=== PATIENT | female | born 1965 | race Caucasian/White ===

== ENCOUNTER 2016-10-20 08:36 | Emergency (ER) | payer BC ==
[~2016-10-20] VITALS: Ht 160 cm; Wt 45.5 kg
[~2016-10-20 08:36] MED LIST: ALBUAER2 INH; ASCO500T16 PO; CALC1CHW2 PO; EPP3/2; ESCI10TA17 PO; GARL400T4 PO; LEVO150T PO; MULT-506 PO; OMEG10007 PO; ZNTT/150 PO
[2016-10-20 08:43] VITALS: TEMP 36.7; Ht 160 cm; Wt 45.5 kg
[2016-10-20] MEDS ORDERED: VNTHFA/IN INH (09:00)
[2016-10-20] MEDS ORDERED: GARL1CAP6 (09:00)
[2016-10-20] MEDS ORDERED: SODIUM CHLORIDE 0.9% 500ML 500 ML IV STA (09:44)
[2016-10-20 10:01] LABS: BASO % 0.6 %; BASO ABS # 0.03 K/uL (0-0.2); COMPLETE YES; EOS % 2.6 %; HEMATOCRIT 41.8 % (37-47); LYMPH % 46.2 %; LYMPH ABS # 2.46 K/uL (1.2-3.4); MEAN CELL VOLUME 94.6 fL (80-100); MEAN CORPUSCULAR HEMOGLOBIN 33.3 pg (25-34); MEAN CORPUSCULAR HGB CONC 35.2 g/dl (32-36); MEAN PLATELET VOLUME 11.9 fL (7.4-10.4); MONO % 7.3 %; NEUT % 43.3 %; PLATELET COUNT 291 K/uL (130-400); RED BLOOD COUNT 4.42 M/uL (4.2-5.4); WHITE BLOOD COUNT 5.33 K/uL (4.8-10.8)
[2016-10-20 10:08] LABS: ALT/SGPT 22 U/L (12-78); AST/SGOT 15 U/L (15-37); BLOOD UREA NITROGEN 11 mg/dl (7-18); CALCIUM 9.6 mg/dl (8.5-10.1); CARBON DIOXIDE 31 mmol/L (21-32); CHLORIDE 103 mmol/L (98-107); CREATININE 0.91 mg/dl (0.60-1.20); GLUCOSE 89 mg/dl (70-99); MAGNESIUM 2.4 mg/dl (1.8-2.4); POTASSIUM 3.9 mmol/L (3.5-5.1); SODIUM 142 mmol/L (136-145)
--- NOTE | 2016-10-20 10:12 | DIAGNOSTIC IMAGING REPORT ---
CHEST ONE VIEW PORTABLE CLINICAL HISTORY: Heart palpitations COMPARISON STUDY: 10/17/2012 FINDINGS: The cardiac and mediastinal contours are normal. There is no evidence of focal pulmonary consolidation. There is no evidence of failure. No pleural effusions are visualized.[ IMPRESSION: No active disease in the chest. Electronically signed by: Lukas Joy M.D. 10/20/2016 10:10 AM Dictated Date/Time: 10/20/2016 10:10 AM
[2016-10-20 10:15] LABS: PROTHROMBIN TIME (PATIENT) 10.6 SECONDS (9.0-12.0)
[2016-10-20] MEDS ORDERED: DEXAMETHASONE SOD INJ 10 MG/ML VIAL IV ONE (10:15)
[2016-10-20 10:19] LABS: ALB/GLOB RATIO 1.3 (0.9-2); ALKALINE PHOSPHATASE 71 U/L (45-117); THYROID STIMULATING HORMONE 0.648 uIu/ml (0.300-4.500)
[2016-10-20 10:28] LABS: URINE APPEARANCE CLEAR (CLEAR); URINE BILIRUBIN NEG (NEG); URINE COLOR YELLOW; URINE NITRITE NEG (NEG); UROBILINOGEN NEG (NEG); ZZUR CULT IF INDIC CLEAN CATCH NO
[2016-10-20 10:29] LABS: MANUAL MICROSCOPIC REQUIRED? NO; REVIEW REQ? NO
[2016-10-20 11:02] LABS: BENZODIAZEPINE, URINE NEG (NEG); COCAINE,URINE NEG (NEG); PHENCYCLIDINE, URINE NEG (NEG)
--- NOTE | 2016-10-20 12:46 | EMERGENCY ROOM VISIT NOTE ---
History First contact with patient: 09:19 Chief Complaint: ILLNESS Stated Complaint: HEART PALPITATIONS, FAINT, NAUSEA History of Present Illness The patient is a 51 year old female who presents to the Emergency Department by private vehicle for evaluation of her episodes of lightheadedness and near- syncope. She reports that she's had an adequate amount of stress recently with a breakup as well as a change in job. She is currently going through breakup with her significant other. She reports on Wednesday while at her significant other's house she was having Augmentin developed sweatiness as well as nausea and dizziness. She had no vomiting. She had no pain in her chest. She had been feeling okay until today. While at work, she reports taking excessive amounts of caffeine in the form of coffee and smoking a cigarette. She reports that shortly after this developed twitchiness of her lower extremities as well as lightheadedness. She admits to drinking alcohol with more frequency recently in an effort to cope. She denies any suicidal or homicidal ideation. The patient actually made an appointment for this afternoon with her primary care provider for her new symptoms. She elected to come to the emergency department for evaluation of her recent symptoms. Patient denies any history of cardiac disease. She is only treated for hypothyroidism at this point. Mother has a history of hypertension and high cholesterol. There is no significant family history of coronary artery disease. The patient does admit to smoking. She currently denies any headaches, dizziness, chest pain, palpitations, shortness of breath, hemoptysis, nausea, vomiting, or lower abdominal pain. She denies any recent long distance travel or oral contraception. There is no family history of blood clots or bleeding disorders. She rates her current discomfort as a 1/10. Review of Systems A complete 10-point Review of Systems was discussed with the patient, with pertinent positives and negatives listed in the History of Present Illness. All remaining Review of Systems questions can be considered negative unless otherwise specified. Past Medical/Surgical History Medical Problems: (1) Asthma, Unspecified (2) Frequent UTI (3) GERD (gastroesophageal reflux disease) (4) Hypothyroidism Nos Surgical Problems: (1) section (2) Hx of tubal ligation Social History Smoking Status: Current Every Day Smoker Alcohol Use: occasionally Marital Status: Housing Status: lives with family Occupation Status: employed Current/Historical Medications Scheduled Albuterol Hfa (Ventolin Hfa), 2-4 PUFFS INH Q6H Ascorbic Acid (Ascorbic Acid), 500 MG PO QAM Calcium Carbonate-Vitamin D (Caltrate 600+D 600-400 mg-Unit), 1 TAB PO QAM Epinephrine (Epipen 2-Ray), UD Escitalopram (Lexapro), 10 MG PO QAM Fish Oil ([place]-3), 1 CAP PO QAM Levothyroxine Sodium (Synthroid), 150 MCG PO QAM Multivitamin (Multivitamin), 1 TAB PO QAM Scheduled PRN Ranitidine (Zantac), 150 MG PO DAILY PRN for Indigestion Miscellaneous Medications Garlic (Garlic), Unknown Dose Allergies Coded Allergies: BEE STING (Verified Allergy, Severe, ANAPHYLAXIS, 10/20/16) Physical Exam Vital Signs Date Time Temp Pulse Resp B/P Pulse Ox O2 Delivery O2 Flow Rate FiO2 10/20/16 12:52 62 18 138/78 99 10/20/16 11:32 62 16 136/84 97 Room Air 10/20/16 09:52 66 16 138/96 99 Room Air 10/20/16 08:49 64 10/20/16 08:43 36.7 94 18 159/82 96 Room Air Pain Rating (0-10): 1 Physical Exam VITAL SIGNS - Vital signs and nursing notes were reviewed. GENERAL - 51-year-old female appearing her stated age who is in no acute distress. Communicates well with provider and answers questions appropriately. HEAD - NC/AT. EYES - PERRL with EOMI bilaterally. Sclera anicteric. Palpebral conjunctiva pink and moist with no injection noted. EARS - No deformities of external structures noted on gross examination bilaterally. No pain elicited with palpation of the tragus bilaterally. External auditory canals without discharge or otorrhea. Tympanic membranes pearly kolb without retraction or bulging. NOSE - Midline and without cyanosis. No epistaxis or purulent drainage noted. Septum midline without deviation or septal hematoma noted. MOUTH/OROPHARYNX - Without perioral cyanosis. Buccal mucosa pink and moist and without leukoplakia. Tongue midline with equal elevation of palate bilaterally. No tonsillar hypertrophy, erythema, or exudates noted. Good dentition noted. NECK - Neck with FROM. Supple to palpation. LUNGS - Chest wall symmetric without accessory muscle use, intercostals retractions, or central cyanosis. Normal vesicular breath sounds CTA B/L. No wheezes, rales, or rhonchi appreciated. CARDIAC - RRR with S1/S2. No murmur, rubs, or gallops appreciated. No reproducible tenderness to palpation appreciated over the anterior chest wall. ABDOMEN - Abdominal contour flat and without pulsations or visible masses. BS normoactive all four quadrants. No tenderness, palpable masses, hepatosplenomegaly, or ascites noted. EXTREMITIES - No clubbing or peripheral cyanosis. No pretibial edema present. +3 /5 radial and dorsalis pedis pulses palpated throughout. +5/5 strength noted in UE/LE bilaterally. NEUROLOGIC - Cranial nerves II through XII grossly intact. Sensory intact to light touch throughout. PSYCH - A&Ox3 and cooperates fully with examiner. Pt is very pleasant and interacts well with examiner. Medical Decision & Procedures ER Provider Diagnostic Interpretation: Radiological imaging and reports were reviewed by myself. Radiologist's Interpretation as follows: CHEST ONE VIEW PORTABLE CLINICAL HISTORY: Heart palpitations COMPARISON STUDY: 10/17/2012 FINDINGS: The cardiac and mediastinal contours are normal. There is no evidence of focal pulmonary consolidation. There is no evidence of failure. No pleural effusions are visualized.[ IMPRESSION: No active disease in the chest. Laboratory Results 10/20/16 08:45 Red Blood Count 4.42, Mean Corpuscular Volume 94.6, Mean Corpuscular Hemoglobin 33.3, Mean Corpuscular Hemoglobin Concent 35.2, Mean Platelet Volume 11.9, Neutrophils (%) (Auto) 43.3, Lymphocytes (%) (Auto) 46.2, Monocytes (%) (Auto) 7.3, Eosinophils (%) (Auto) 2.6, Basophils (%) (Auto) 0.6, Neutrophils # (Auto) 2.31, Lymphocytes # (Auto) 2.46, Monocytes # (Auto) 0.39, Eosinophils # (Auto) 0.14, Basophils # (Auto) 0.03 10/20/16 08:45 Test 10/20/16 08:45 10/20/16 10:00 10/20/16 12:00 White Blood Count 5.33 K/uL (4.8-10.8) Red Blood Count 4.42 M/uL (4.2-5.4) Hemoglobin 14.7 g/dL (12.0-16.0) Hematocrit 41.8 % (37-47) Mean Corpuscular Volume 94.6 fL (80-100) Mean Corpuscular Hemoglobin 33.3 pg (25-34) Mean Corpuscular Hemoglobin Concent 35.2 g/dl (32-36) Platelet Count 291 K/uL (130-400) Mean Platelet Volume 11.9 fL (7.4-10.4) Neutrophils (%) (Auto) 43.3 % Lymphocytes (%) (Auto) 46.2 % Monocytes (%) (Auto) 7.3 % Eosinophils (%) (Auto) 2.6 % Basophils (%) (Auto) 0.6 % Neutrophils # (Auto) 2.31 K/uL (1.4-6.5) Lymphocytes # (Auto) 2.46 K/uL (1.2-3.4) Monocytes # (Auto) 0.39 K/uL (0.11-0.59) Eosinophils # (Auto) 0.14 K/uL (0-0.5) Basophils # (Auto) 0.03 K/uL (0-0.2) RDW Standard Deviation 46.0 fL (36.4-46.3) RDW Coefficient of Variation 13.2 % (11.5-14.5) Immature Granulocyte % (Auto) 0.0 % Immature Granulocyte # (Auto) 0.00 K/uL (0.00-0.02) Prothrombin Time 10.6 SECONDS (9.0-12.0) Prothromb Time International Ratio 1.0 (0.9-1.1) Activated Partial Thromboplast Time 27.1 SECONDS (21.0-31.0) Partial Thromboplastin Ratio 1.0 Anion Gap 8.0 mmol/L (3-11) Est Creatinine Clear Calc Drug Dose 51.4 ml/min Estimated GFR () 83.5 Estimated GFR (Non- 72.0 BUN/Creatinine Ratio 12.0 (10-20) Calcium Level 9.6 mg/dl (8.5-10.1) Magnesium Level 2.4 mg/dl (1.8-2.4) Total Bilirubin 0.7 mg/dl (0.2-1) Aspartate Amino Transf (AST/SGOT) 15 U/L (15-37) Alanine Aminotransferase (ALT/SGPT) 22 U/L (12-78) Alkaline Phosphatase 71 U/L (45-117) Total Creatine Kinase 65 U/L (26-192) Creatine Kinase MB < 0.5 ng/ml (0.5-3.6) Creatine Kinase MB Ratio (0-3.0) Total Protein 7.5 gm/dl (6.4-8.2) Albumin 4.2 gm/dl (3.4-5.0) Globulin 3.3 gm/dl (2.5-4.0) Albumin/Globulin Ratio 1.3 (0.9-2) Lipase 199 U/L (73-393) Thyroid Stimulating Hormone (TSH) 0.648 uIu/ml (0.300-4.500) Urine Color YELLOW Urine Appearance CLEAR (CLEAR) Urine pH 8.0 (4.5-7.5) Urine Specific [place] 1.000 (1.000-1.030) Urine Protein NEG (NEG) Urine Glucose (UA) NEG (NEG) Urine Ketones NEG (NEG) Urine Occult Blood NEG (NEG) Urine Nitrite NEG (NEG) Urine Bilirubin NEG (NEG) Urine Urobilinogen NEG (NEG) Urine Leukocyte Esterase NEG (NEG) Urine Opiates Screen NEG (NEG) Urine Methadone, Qualitative NEG (NEG) Urine Barbiturates NEG (NEG) Urine Phencyclidine (PCP) Level NEG (NEG) Ur Amphetamine/Methamphetamine NEG (NEG) MDMA (Ecstasy) Screen NEG (NEG) Urine Benzodiazepines Screen NEG (NEG) Urine Cocaine Metabolite NEG (NEG) Urine Marijuana (THC) NEG (NEG) Troponin I 0.039 ng/ml (0-0.045) Medications Administered Medications (Trade) Dose Ordered Sig/Mehreen Route Start Time Stop Time Status Last Admin Dose Admin Sodium Chloride (Nss 500ml) 500 ml @ 999 mls/hr Q31M STAT IV 10/20/16 09:44 10/20/16 10:14 DC 10/20/16 09:44 999 MLS/HR Procedure Patient was placed on the database technician and monitored throughout the entire extent of their stay. In addition, the patient's pulse oximetry was monitored throughout the entire stay. Any abnormalities or aberrancies were addressed appropriately. ECG Indication: diaphoresis Rate (beats per minute): 65 Rhythm: normal sinus Findings: no acute ischemic change, no ectopy Change: no significant change (from 11/24/2006.) ED Course Patient was seen and evaluated by myself. Labs were drawn, saline lock in place. EKG and chest x-rays were obtained. Laboratory results demonstrate no acute leukocytosis, worrisome anemia, or bandemia. The patient has no significant electrolyte abnormalities. Cardiac enzymes are negative. Troponin is not elevated. Patient was hydrated with a 1000 mL normal saline bolus per the patient reports no return of symptoms at this point. Repeat troponin was obtained and found to be unremarkable. Patient was educated on laboratory results and imaging findings. She was educated on keeping her appointments afternoon with her primary care provider. She was educated on worrisome symptoms for return visit to the emergency department. Patient discharged home afebrile and in good condition. Medical Decision Given the patient's presentation and stated complaints, I did elect to perform the above-mentioned workup. The patient presents today complaining of palpitations and lightheadedness. She has no pain in her chest this point. She has no significant risk factors or family history of bursitis at this point. Her EKG is unremarkable. Cardiac enzymes are negative 2. She has no focal neurological deficits. Exam is otherwise unremarkable. Patient has appointment this afternoon with her primary care provider. I feel this is appropriate management in this situation. I do not feel that admission or further evaluation as the sedimentation rate this point. The patient will return to the emergency department in the setting of any changing or worsening symptoms. Patient discharged home afebrile and in good condition. In the evaluation and treatment of this patient, the following differential diagnoses were considered: CT, ASC, Dysrhythmia, Angina, Mediastinitis, GERD, Esophagitis, PE, Pneumonia, Bronchitis, Costochondritis, Rib Fracture, Zoster. Impression Primary Impression: Dizziness Additional Impression: Pre-syncope Departure Information Dispostion Home / Self-Care Condition GOOD Referrals Alec Jack M.D. (PCP) Patient Instructions My [facility] Additional Instructions You have been treated in the Emergency Department for your Dizziness and Presyncope. Laboratory results and Imaging Studies have ruled out any cardiac or pulmonary cause of your chest pain. For pain control, you can use the following [id number] medicines (if >12 yo): - Regular strength (325mg/tab) Tylenol (acetaminophen) 2 tabs every 4-6 hours as needed. Do not exceed 12 tablets in a 24 hour period. Avoid taking more than 4 grams (4000 mg) of Tylenol per day. This includes any other sources of acetaminophen you may take on a regular basis. - Regular strength (200 mg/tab) Advil (ibuprofen) 1-2 tabs every 4-6 hours as needed. Do not exceed a dose of 3200 mg per day. Follow-up with your primary care provider this afternoon as scheduled. Return to the Emergency Department if your current symptoms worsen despite treatment course outlined above, or if you develop any of the following symptoms : worsening chest pain, associated jaw/arm pain, nausea, dizziness, shortness of breath, bloody cough, or fainting. Problem Qualifiers
[2016-10-20 12:52] VITALS: BP 138/78; PULSE 62; O2SAT 99
== END 2016-10-20 12:53 | disposition home or self-care (01) ==
LOC: C.EDB 08:38
DX: R42 Dizziness and giddiness (principal); R55 Syncope and collapse; J45.909 Unspecified asthma, uncomplicated; K21.9 Gastro-esophageal reflux disease without esophagitis; E03.9 Hypothyroidism, unspecified; F17.200 Nicotine dependence, unspecified, uncomplicated

== ENCOUNTER → 2016-11-18 | Outpatient (CLI) | payer BC ==
[~2016-11-18] MED LIST changes: -ALBUAER2 INH; +GARL1CAP6; -GARL400T4 PO; +VNTHFA/IN INH
[2016-11-18 13:13] LABS: CHOLESTEROL/HDL RATIO 1.4
== END | disposition home or self-care (01) ==
LOC: C.LABBFT 08:49
PROVIDERS: ATTEND Nurse Practitioner
DX: E03.9 Hypothyroidism, unspecified (principal)

== ENCOUNTER → 2017-04-07 | Outpatient (CLI) | payer BC ==
[2017-04-07 12:46] LABS: MANUAL MICROSCOPIC REQUIRED? NO; REVIEW REQ? NO; URINE APPEARANCE TURBID (CLEAR); URINE BILIRUBIN NEG (NEG); URINE COLOR DK YELLOW; URINE NITRITE NEG (NEG); URINE SPECIFIC GRAVITY 1.019 (1.000-1.030); UROBILINOGEN NEG (NEG)
== END | disposition home or self-care (01) ==
LOC: C.LABBFT 10:53
PROVIDERS: ATTEND Physician Assistant Medical
DX: R39.9 Unspecified symptoms and signs involving the genitourinary system (principal)

== ENCOUNTER → 2017-11-04 | Outpatient (CLI) | payer OTHER ==
--- NOTE | 2017-11-04 14:28 | MAMMOGRAPHY REPORT ---
BILATERAL DIGITAL SCREENING MAMMOGRAM TOMOSYNTHESIS WITH CAD: 11/04/2017 CLINICAL HISTORY: Routine screening. The patient has no current complaints. TECHNIQUE: Breast tomosynthesis in addition to standard 2D mammography was performed. Current study was also evaluated with a Computer Aided Detection (CAD) system. COMPARISON: Comparison is made to exams dated: 09/13/2015 mammogram, 07/11/2014 mammogram, 3 mammogram, 01/12/2013 mammogram, 07/07/2012 mammogram, and 07/06/2011 mammogram - [facility]. BREAST COMPOSITION: The tissue of both breasts is heterogeneously dense, which may obscure small mas ses. FINDINGS: No suspicious masses, calcifications, or areas of architectural distortion are noted in ei ther breast. There has been no significant interval change compared to prior exams. Scattered bilate ral benign-appearing calcifications are again noted. IMPRESSION: ACR BI-RADS CATEGORY 2: BENIGN There is no mammographic evidence of malignancy. A 1 year screening mammogram is recommended. The pa tient will receive written notification of the results. Approximately 10% of breast cancers are not detected with mammography. A negative mammographic report should not delay biopsy if a clinically suggestive mass is present. Olya Ordaz M.D. ah/:11/04/2017 12:18:21 Scaffold Builder: Melody AMADO)(M), [facility] letter sent: Normal 1/2 BI-RADS Code: ACR BI-RADS Category 2: Benign
== END | disposition home or self-care (01) ==
LOC: C.MAMM 10:52
PROVIDERS: ATTEND Internal Medicine
DX: Z12.31 Encounter for screening mammogram for malignant neoplasm of breast (principal)

== ENCOUNTER → 2017-12-20 | Outpatient (CLI) | payer OTHER ==
[~2017-12-20] MED LIST changes: +RANI150T85 PO; -ZNTT/150 PO
== END | disposition home or self-care (01) ==
LOC: C.PAPS 10:12
PROVIDERS: ATTEND Obstetrics & Gynecology
DX: Z12.4 Encounter for screening for malignant neoplasm of cervix (principal); N87.0 Mild cervical dysplasia

== ENCOUNTER 2020-01-09 05:18 | Inpatient (IN) ==
--- NOTE | 2020-01-05 14:40 | Anesthesiology Consultation ---
Date of Service January 05, 2020 Assessment & Plan (1) Encounter for pre-operative examination: Chart Review Chart Review: Acceptable Risk for Surgery and Patient NOT seen in Pre Admission Testing History Surgery Operation Date: 01/09/20 07:30 Proposed Procedures p Navigational Bronchoscopy with ICG dye, Right Robotic Video Assisted Thoracoscopy with Right Lower Lobe Wedge Resection with Frozen Section, Possible Right Lower Lobectomy with Mediastinal Lymphadenectomy - [place] Perales MD, FACS Height/Weight Height: 5 ft 3 in Weight: 65.771 kg Allergies Allergy/AdvReac Type Severity Reaction Status Date / Time bee venom protein (honey bee) Allergy Severe ANAPHYLAXIS Verified 01/03/20 11:33 Medications Home Medications Medication Instructions Recorded Confirmed Last Taken ibuprofen [Motrin IB] 600 mg PO Q6H PRN 11/26/19 01/05/20 11/26/19 15:00 albuterol sulfate 90 mcg/actuation 2 puffs INH Q6H PRN #18 gm 12/28/19 01/05/20 Unknown aerosol inhaler levothyroxine 150 mcg capsule 150 mcg PO QAM 12/28/19 01/05/20 Unknown garlic 1,000 mg capsule 1,000 mg PO QAM 01/03/20 01/05/20 Unknown multivitamin 1 tab PO QAM 01/03/20 01/05/20 Unknown escitalopram oxalate 20 mg PO QAM 01/05/20 01/05/20 Unknown Past Medical History Medical History Asthma SEASONAL ASTHMA AND MAY USE RESCUE INHALER 1-2 TIMES PER YEAR. Bronchitis HAS HAD 2-3 TIMES OVER AN 8 YEARS PERIOD. NO SOB OR COUGH AT THIS TIME. Carpal tunnel syndrome BL S/P SURGERY Hypothyroidism, unspecified (Acute) POTS (postural orthostatic tachycardia syndrome) PALPITATIONS INFREQUENTLY, NO RECENT SYNCOPE. CURRENTLY UNDER CONTROL. FOLLOWED BY PCP. STRESS TEST 2017 NEGATIVE, NO ARRHYTHMIA. Pulmonary nodule Sigmoid diverticulitis (Inactive) 11/2019 WAS THE LAST EPISODE Past Family History Family History Mother Hypothyroidism Hypertension Father Diverticulitis Cancer Unknown Gout Parkinsons Mitral valve prolapse Grandmother Stroke Past Surgical History Surgical History H/O section Hx of colonoscopy 10/2018 S/P trigger finger release Social History Smoking Status: Former smoker tobacco type: cigarettes Do You Dip or Chew Tobacco: No Smoking End Date: ABOUT 2 WEEK AGO Hx Alcohol Use: Yes Alcohol type: beer alcohol intake frequency: 0-2 drinks per day Hx Substance Use: No substance use type: marijuana Testing Laboratory Results 11/26/19 WBC: 10.53 H/H: 13.0/37.5 PLATELETS: 218 SODIUM: 140 POTASSIUM: 3.4 CHLORIDE: 107 CO2: 29 BUN: 7 CREATININE: 0.81 GLUCOSE: 107 Electrocardiogram Date: 01/04/20 Findings: + SB @ (59bpm) Otherwise normal, no significant change from 10/20/16 EKG. Stress Test Date: 11/23/17 Type: exercise Resting EF: 60-65% Negative stress echo for ischemia at 85% MPHR. Mildly blunted blood pressure response to exercise. No arrhythmia. Study terminated due to fatigue. No chest pain reported. Good exercise tolerance. Resting echo: No regional wall motion abnormalities. Normal LV size and systolic function. No LVH. Type I diastolic dysfunction. No significant valvular abnormalities visualized. Normal estimated RVSP, assuming normal right atrial pressure. Pulmonary Function Test Date: 12/28/19 Findings: + FEV1 pre (2.34), + FEV1 post (2.46) and + responds to Bronchodilators (+4) Adequate test. No evidence of obstructive lung dysfunction. Significant bronchodilator response. Normal lung volumes. Mild decrease in DLCO which corrects for [facility]. Suggest clinical correlation.
[2020-01-09] MEDS ORDERED: LR 15ML/HR IV SCH (06:00)
[2020-01-09] MEDS ORDERED: PROPOFOL IV EMULSION 10 MG/ML 20 ML VIAL IV ONE (06:50)
[2020-01-09] MEDS ORDERED: DEXAMETHASONE SOD INJ 4 MG/ML VIAL ONE (06:50)
[2020-01-09] MEDS ORDERED: ONDANSETRON INJ 2 MG/ML 2 ML VIAL ONE (06:50)
[2020-01-09] MEDS ORDERED: fentaNYL citrate 100 MCG/2 ML VIAL ONE ×2 (06:50→12:03)
[2020-01-09] MEDS ORDERED: LIDOCAINE HCL 2% 2 ML VIAL/AMP(20MG/ML) INFIL ONE (06:50)
[2020-01-09] MEDS ORDERED: MIDAZOLAM HCL 1 MG/ML 2ML VIAL ONE (06:50)
[2020-01-09] MEDS ORDERED: ROCURONIUM BROMIDE 10 MG/ML 5 ML VIAL ONE (06:50)
[2020-01-09] MEDS ORDERED: BUPIVACAINE 0.5 % 5 MG/1 ML MPF 30ML VIAL ONE (07:02)
[2020-01-09] MEDS ORDERED: SODIUM CHLORIDE 0.9% PF 50 ML VIAL ONE (07:03)
[2020-01-09] MEDS ORDERED: BUPIVACAINE LIPOSOME 1.3% 266 MG/20 ML VIAL ONE (07:03)
--- NOTE | 2020-01-09 07:25 | History & Physical Bridge Note ---
Date of Service January 09, 2020 History & Physical Bridge Note I have examined the patient, reviewed the History & Physical and in the interval since the performance of the History & Physical I have noted the following changes of clinical significance: no changes noted
[2020-01-09] MEDS ORDERED: PHENYLEPHRINE 100MCG/ML 5ML SYR ONE (07:53)
[2020-01-09] MEDS ORDERED: ePHEDrine sulfate 50 MG/ML SYR ONE (07:58)
[2020-01-09] MEDS ORDERED: CLINDAMYCIN PHOS 300 MG/2 ML VIAL ONE (07:59)
[2020-01-09] MEDS ORDERED: SUGAMMADEX SODIUM 200 MG/2 ML VIAL IV ONE (08:20)
--- NOTE | 2020-01-09 08:36 | Fluoroscopy Report ---
INTRAOPERATIVE RADIOGRAPHS CLINICAL HISTORY: Navigational bronchoscopy. Fluoroscopy time: 3 2 seconds. FINDINGS: 2 spot fluoroscopic views of the right lower chest are correlated with chest CT dated 2019. Both images show a catheter projecting over the right lower lobe in the region of the expected pulmonary nodule. There is no evidence of pneumothorax on the provided images. IMPRESSION: Bronchoscopy images as above. See operative report for detailed findings. Electronically signed by: Theo Browning M.D. 01/09/2020 8:34 AM
[2020-01-09] MEDS ORDERED: HYDROmorphone INJ 1 MG/ML SYRINGE IV PRN (08:45)
[2020-01-09] MEDS ORDERED: LABETALOL HCL IV 5 MG/ML 20ML IV PRN (08:45)
[2020-01-09] MEDS ORDERED: MEPERIDINE HCL 25 MG/ML CARP/VIAL IV PRN (08:45)
[2020-01-09] MEDS ORDERED: PHENYLEPHRINE 100MCG/ML 5ML SYR IV PRN (08:45)
[2020-01-09] MEDS ORDERED: ePHEDrine sulfate 50 MG/ML AMP IV PRN (08:45)
[2020-01-09] MEDS ORDERED: ONDANSETRON INJ 2 MG/ML 2 ML VIAL IV PRN ×2 (08:45→13:16)
[2020-01-09] MEDS ORDERED: ATROPINE SULFATE 0.1 MG/ML 10ML SYR IV PRN (08:45)
--- NOTE | 2020-01-09 11:58 | XRay Report ---
SINGLE VIEW CHEST CLINICAL HISTORY: Status post right lower lobe resection. FINDINGS: An AP, portable, upright chest radiograph is compared to study dated 10/20/2016 and correlat ed with chest CT dated 12/05/2019. The examination is degraded by portable technique and patient rotat ion. The heart is mildly enlarged. The pulmonary vasculature is noncongested. There is postoperative change and volume loss consistent with right lower lobe resection. A right-sided chest tube is in codi ce. The tip terminates at the apex. Trace pleural fluid is noted at the right lung base. There is bib asilar atelectasis. No definite pneumothorax is identified. The skeletal structures are osteopenic. T he bony thorax is grossly intact. Trace subcutaneous gas is noted in the right lower neck. IMPRESSION: 1. There is postoperative change and volume loss consistent with right lower lobe resection. 2. A chest tube is present at the right apex. No pneumothorax is clearly seen. 3. There is trace pleural fluid at the right lung base and bibasilar atelectasis. ACT 112: Negative or not required by law. Electronically signed by: Theo Browning M.D. 01/09/2020 11:57 AM
[2020-01-09] MEDS: fentaNYL citrate 100 MCG/2 ML VIAL IV PRN ×4 (12:04→12:24)
--- NOTE | 2020-01-09 12:09 | Operative Report (OR) ---
DATE OF OPERATION: 01/09/2020 PREOPERATIVE DIAGNOSIS: Right lower lobe mass. 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 PROCEDURES PERFORMED: 1. Electromagnetic navigational bronchoscopy with marking of the area with indocyanine green dye. 2. Robot-assisted thoracoscopic wedge resection using Firefly technology of right lower lobe x2. 3. Robot-assisted thoracoscopic right lower lobectomy. 4. Mediastinal lymphadenectomy. SURGEON: Chico Perales MD. KENNEL AIDE: JANINE Connolly. ANESTHESIA: General anesthesia, endotracheal intubation. INDICATION FOR PROCEDURE AND FINDINGS: This is a 54-year-old smoker who has been smoking lightly but for many years. She was noted to have a mass in her right lower lobe, which was not present in 2007. She is otherwise healthy. We had a long talk about this. It was markedly intraparenchymal. I felt that if we could rosy the pleura near this, we would be able to go deep and get to the mass, although I did explain to the patient that that may not be possible. In which case depending on how things would go, I would proceed with a lobectomy. It should be noted I did not like the appearance of this mass. It was spiculated. With her history of cigarette smoking, I was concerned. She had no evidence of metastatic disease anywhere else. On 01/09/2020, the patient was brought to the operating room and underwent an uncomplicated electromagnetic navigational bronchoscopy and I marked this area with indocyanine green dye. We then turned the patient and performed a robot-assisted thoracoscopic evaluation. She had well-developed fissures. We saw this area of the indocyanine green dye; however, it should be noted that the mass was a good 2-3 cm intraparenchymal, we would not be able to palpate it. I wedged this area out and I could not feel the mass. I wedged another significant wedge out, still did not feel it. At this point, I elected to proceed with a lobectomy, which was performed without difficulty with negligible blood loss and really no air leak at the conclusion of the case. Frozen section showed this to be a stromal tumor. It is an unusual cancer. It is not a hamartoma. Unlikely it is a sarcoma. 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 The patient tolerated the procedure well and was extubated in the room with negligible blood loss. DESCRIPTION OF PROCEDURE: The patient was brought to the operating room, laid in supine position. General anesthesia was induced and endotracheal intubation performed with a single lumen tube. Fiberoptic bronchoscope was inserted, and we could see that the airways themselves were without abnormalities. The airways were then registered with the superDimension system. I then went out to the mass and could see this nicely and used a radial ultrasound probe to see that we were very close to the mass; however, I went beyond this another centimeter and a half or so and injected 0.5 mL of indocyanine green dye and 5 mL of air. There was no bleeding. I withdrew the scope and the patient tolerated it well. The patient was then switched over to a double lumen endotracheal tube. This was positioned properly. We then turned the patient into the left lateral decubitus position, and her right chest was prepped and draped in usual sterile fashion. After appropriate timeout had been called, a 5 mm port was placed anterior to the mid axillary line in the eighth interspace. It should be noted that we gave prophylactic antibiotics prior to the electromagnetic navigational bronchoscopy and also called a timeout not only before the bronchoscopy and marking but also before the robot-assisted thoracoscopic portion. Upon placing the 5 mm scope, it was seen that there were no adhesions. 8 mm ports were placed anterior and posterior and then a 5 mm port was placed further posterior in a different interspace closer to the spine. The patient had no adhesions and had well-developed fissures. Pulling the lobe up, we came upon the area using the Firefly technology to see where the dye was marked. Grasping this, we then used an Endo-NICOLA stapler and did a generous wedge resection; however, upon removing this with an Endobag, I could not feel the mass. For this reason, I went back and took a larger wedge resection. Again, upon pulling this out, I could not palpate the mass. We have already taken a good portion of the right lower lobe and I felt that doing a lobectomy to ensure that we removed this mass was appropriate. We then did a lymph node dissection and freed up the inferior pulmonary ligament and came up and freed up the vein posteriorly. Coming up, I biopsied two level 9 nodes. Really did not see a level 8 node and then we got into the level 7 lymph node packet. Also, I biopsied level 10 and level 11 node. It should be noted that I dissected out the level 11 node between the inferior aspect of the right upper lobe bronchus and the bronchus intermedius. I identified the posterior ascending artery and did a pretty aggressive dissection along the bronchus. I then went above the azygos vein and dissected out a packet of level 2 and level 4 nodes. Coming back down posteriorly, I was able to identify the artery and dissected out the artery just below the fissure. Upon going anterior to the artery, I dissected back up until I saw the posterior ascending artery and then completed the fissure with a staple posteriorly. This required 2 firings of the staple. This looked quite good and I dissected out the artery and fired an Endo-NICOLA stapler across this below the takeoff of the right middle lobe branches and this went very nicely. I then dissected out the bronchus and the vein. I them and then used Endo-NICOLA stapler to fire across the bronchus below the middle lobe takeoff. This then left just the vein and I fired Endo-NICOLA stapler across this. We placed this in an Endobag and removed it through the assistance port. It should be noted, we placed a 15 mm port into the assistant professor of forestry port site which was just above the diaphragm between the anterior port and the camera port. I could palpate the mass after I pulled this out. We sent this off for frozen section and while we were waiting, we checked for an air leak and did not see one. We then closed the assistant professor of forestry's port with a 0 Vicryl in running continuous fashion. A 24-Yemeni chest tube was placed in the camera port and directed towards the apex under thoracoscopic guidance. This was sutured in place with heavy silk suture. The rest of the incisions were closed with 4-0 Monocryl in running subcuticular fashion. The patient did not have an air leak at the conclusion of the case. We had less than 100 mL of blood loss. It should be noted that at the beginning of the case, 266 mg of Exparel in 20 mL of solution were mixed with 30 mL of 0.5% bupivacaine and 250 mL of normal saline. This solution was used to inject each of the 5 port sites. We also injected the intercostal space from the 2nd to the 11th rib. This was done under thoracoscopic guidance. At the conclusion of the case, the patient tolerated it well, was extubated in the room. I went and reviewed the frozen section and this is an unusual tumor. It may be benign, but it is not a hamartoma. It may be an adenomyoma of the lung, which is very unusual. It is possible it could also be a sarcoma. Immunohistochemical stains will need to be done to tell us for sure. The margins were negative. She tolerated it quite well. I attest to the content of the Intraoperative Record and any orders documented therein. Any exception s are noted below.
[2020-01-09] MEDS ORDERED: METOCLOPRAMIDE HCL INJ 5 MG/ML 2 ML VIAL ONE (12:22)
[2020-01-09] MEDS ORDERED: METOCLOPRAMIDE HCL INJ 5 MG/ML 2 ML VIAL IV STA ×2 (12:23→13:16)
--- NOTE | 2020-01-09 12:27 | Anesthesiology Progress Note ---
Date of Service January 09, 2020 Anesthesia Post Procedure Vital Signs Vital Signs: Temp Pulse Pulse Resp BP BP Pulse Ox 01/09/20 12:15 73 21 114/76 97 01/09/20 12:05 81 18 135/85 97 01/09/20 11:55 81 17 144/87 H 95 01/09/20 11:45 36.0 C L 80 17 141/93 H 97 01/09/20 05:43 36.7 C 63 18 135/83 97 Pain Intensity Right Chest: Pain Intensity: 3 Transfer of Care Handoff Completed per policy Notes Mental Status: alert / awake / arousable Patient Amnestic to Procedure: Yes Nausea / Vomiting: adequately controlled Pain: adequately controlled and improving with treatment Airway Patency, RR, SpO2: stable & adequate BP & HR: stable & adequate Hydration State: stable & adequate Anesthetic Complications: no major complications apparent and Pt Satisfied with anesthetic care Notes: The patient is awake and her vitals are stable.
[2020-01-09] MEDS ORDERED: ALBUTEROL HFA 8 GM INHALER INH PRN (13:16)
[2020-01-09] MEDS ORDERED: INFLUENZA VIRUS QUAD VACCINE 0.5 ML SYR IM ONE (13:22)
[2020-01-09] MEDS ORDERED: PNEUMOCOCCAL POLYSACCHARIDES 25 MCG/0.5 ML VIAL/SYR IM ONE (13:22)
[2020-01-09] MEDS ORDERED: PNEUMOCOCCAL ADMINISTRATION CHARGE ONE (13:22)
[2020-01-09] MEDS ORDERED: INFLUENZA ADMINISTRATION CHARGE ONE (13:22)
[2020-01-09] MEDS: MoRPHine SULFATE 2 MG/ML CARP IV PRN (13:35)
[2020-01-09] MEDS: D5W AND 1/2NSS 1,000 ML IV SCH ×2 (13:35→22:14)
[2020-01-09] MEDS: ACETAMINOPHEN 1,000 MG/100 ML VIAL IV SCH ×2 (14:48→21:03)
[2020-01-09] MEDS: KETOROLAC TROMETHAMINE 15 MG/ML VIAL IV PRN (16:42)
[2020-01-09] MEDS: DOCUSATE SODIUM 100 MG CAP PO SCH (20:09)
[2020-01-09] MEDS: OXYCODONE HCL IR 5 MG TAB (IMMEDIATE RELEASE) PO PRN (20:59)
[2020-01-10] MEDS: KETOROLAC TROMETHAMINE 15 MG/ML VIAL IV PRN ×4 (00:06→20:02)
[2020-01-10 06:25] LABS: Basophils # (auto) 0.01 K/uL (0-0.2); Basophils % (auto) 0.1 %; Hematocrit (blood only) 35.7 % (37-47); Hemoglobin 11.9 g/dL (12.0-16.0); Immature Granulocytes # (auto) 0.03 K/uL (0.00-0.02); Immature Granulocytes % (auto) 0.3 %; Lymphocytes # (auto) 1.69 K/uL (1.2-3.4); Lymphocytes % (auto) 14.8 %; Mean Corpuscular Hemoglobin 32.5 pg (25-34); Mean Corpuscular Volume 97.5 fL (80-100); Mean Platelet Volume 10.7 fL (7.4-10.4); Monocytes # (auto) 0.74 K/uL (0.11-0.59); Monocytes % (auto) 6.5 %; Neutrophils # (auto) 8.98 K/uL (1.4-6.5); Neutrophils % (auto) 78.3 %; Platelet Count 258 K/uL (130-400); RDW Coefficient of Variation 12.9 % (11.5-14.5); RDW Standard Deviation 45.9 fL (36.4-46.3); Red Blood Count 3.66 M/uL (4.2-5.4); White Blood Count 11.45 K/uL (4.8-10.8)
[2020-01-10 06:27] LABS: Mean Corpuscular Hgb Conc 33.3 g/dL (32-36)
[2020-01-10] MEDS: ACETAMINOPHEN 1,000 MG/100 ML VIAL IV SCH (06:30)
[2020-01-10 06:40] LABS: BUN Creatinine Ratio 11.1 (10-20); Calcium 8.3 mg/dl (8.5-10.1); Creatinine Clr Calc Pharmacy 74.7 ml/min; Est GFR (African American) 98.5; Potassium 3.8 mmol/L (3.5-5.1)
[2020-01-10] MEDS: LEVOTHYROXINE SODIUM 150 MCG TABLET PO SCH (06:46)
[2020-01-10 07:00] LABS: Creatinine Clr Calc Pharmacy 71.9 ml/min; Est GFR (African American) 94.1; Est GFR (Non-African American) 81.2
[2020-01-10] MEDS ORDERED: ACETAMINOPHEN 325 MG TAB PO SCH (07:30)
--- NOTE | 2020-01-10 07:34 | XRay Report ---
XR chest 1V portable HISTORY: 54 years-old Female RLL follow-up study in a patient with bibasilar opacities COMPARISON: Chest radiograph 01/09/2020, PET CT 12/27/2019 TECHNIQUE: Portable AP view of the chest FINDINGS: Postoperative changes of the right lung are redemonstrated. A right-sided chest tube has been slightl y retracted, distal tip projected over the medial right lung apex. Mildly increased subcutaneous emph ysema of the right lateral chest wall and right supraclavicular distribution. Trace pleural effusions with bibasilar opacities suggestive of atelectasis. No pneumothorax is definitively seen. Degenerati ve changes of the shoulders and spine. Cardiac silhouette is enlarged. IMPRESSION: 1. Postoperative changes of the right lung with slight retraction of the chest tube, distal tip proje cted over the right lung apex. 2. Mildly increased subcutaneous emphysema of the right chest wall without pneumothorax identified. 3. Trace pleural effusions with bibasilar opacities suggestive of atelectasis. ACT 112: Negative or not required by law. The above report was generated using voice recognition software. It may contain grammatical, syntax o r spelling errors. Electronically signed by: Antonio Herman M.D. 01/10/2020 7:33 AM
--- NOTE | 2020-01-10 07:55 | Anesthesiology Progress Note ---
Date of Service January 10, 2020 Anesthesia Post Procedure Vital Signs Vital Signs: Temp Pulse Pulse Resp BP Pulse Ox 01/10/20 06:04 36.9 C 70 15 114/72 93 01/10/20 02:23 37.0 C 76 15 102/65 94 01/10/20 00:02 36.8 C 75 16 98/56 L 93 01/09/20 22:10 36.9 C 76 16 103/65 90 01/09/20 19:46 36.4 C L 72 17 126/73 90 01/09/20 18:50 36.4 C L 77 18 113/73 93 01/09/20 17:08 36.5 C 77 14 108/69 91 01/09/20 16:09 36.6 C 72 14 114/71 97 01/09/20 14:52 107/68 01/09/20 14:05 74 18 99/63 L 97 01/09/20 13:33 36.8 C 73 14 97/61 L 98 01/09/20 13:00 36.6 C 84 15 106/72 93 01/09/20 12:35 36.2 C L 74 12 116/79 97 01/09/20 12:25 78 15 113/79 95 01/09/20 12:15 73 21 114/76 97 01/09/20 12:05 81 18 135/85 97 01/09/20 11:55 81 17 144/87 H 95 01/09/20 11:45 36.0 C L 80 17 141/93 H 97 Pain Intensity Right Chest: Pain Intensity: 7 Notes Mental Status: alert / awake / arousable and participated in evaluation Patient Amnestic to Procedure: Yes Nausea / Vomiting: adequately controlled Pain: adequately controlled Airway Patency, RR, SpO2: stable & adequate BP & HR: stable & adequate Hydration State: stable & adequate Anesthetic Complications: no major complications apparent and Pt Satisfied with anesthetic care
[2020-01-10] MEDS: OXYCODONE HCL IR 5 MG TAB (IMMEDIATE RELEASE) PO PRN ×3 (08:20→22:42)
[2020-01-10] MEDS: DOCUSATE SODIUM 100 MG CAP PO SCH ×2 (08:21→20:04)
[2020-01-10] MEDS: ESCITALOPRAM OXALATE 20 MG TAB PO SCH (08:22)
[2020-01-10] MEDS: MULTIVITAMIN TAB PO SCH (08:23)
[2020-01-10] MEDS: ENOXAPARIN INJ 40 MG/0.4 ML SYR SQ SCH (08:23)
[2020-01-10] MEDS: MoRPHine SULFATE 2 MG/ML CARP IV PRN ×3 (11:50→20:01)
[2020-01-10] MEDS: ACETAMINOPHEN 325 MG TAB PO SCH ×2 (11:51→18:05)
--- NOTE | 2020-01-10 12:23 | Progress Notes ---
DATE: 01/10/2020 Ms. Kurtz is 1 day status post robot-assisted thoracoscopic right lower lobectomy for an unusual neoplasm. This may well be benign; however, it could be a sarcoma and we are waiting for immunohistochemical stains to tell for sure. We did a full lymph node dissection. I had a long discussion with the patient this morning about this. The patient looks great. She is on room air. She is ambulating in the hallway without difficulty. She is tolerating a diet. She has a good cough. She does have some pain as would be expected. I was quite pleased with her x-ray with no evidence of pneumothorax. She has a tiny intermittent air leak. I think we will probably be able to pull this chest tube out and let her go home tomorrow.
[2020-01-11] MEDS: ACETAMINOPHEN 325 MG TAB PO SCH ×2 (00:23→06:38)
[2020-01-11] MEDS: KETOROLAC TROMETHAMINE 15 MG/ML VIAL IV PRN (04:23)
[2020-01-11] MEDS: LEVOTHYROXINE SODIUM 150 MCG TABLET PO SCH (06:23)
--- NOTE | 2020-01-11 07:28 | XRay Report ---
SINGLE VIEW CHEST CLINICAL HISTORY: Status post right lower lobe resection. FINDINGS: An AP, portable, upright chest radiograph is compared to study dated 01/10/2020 and correlat ed with chest CT dated 12/05/2019. The heart is mildly enlarged. The pulmonary vasculature is nonconge sted. There is postoperative change and volume loss consistent with right lower lobe resection. A rig ht-sided chest tube is unchanged in position. Trace pleural fluid is noted at the right lung base. Th ere is bibasilar atelectasis. No definite pneumothorax is identified. The skeletal structures are ost eopenic. The bony thorax is grossly intact. Trace subcutaneous gas is noted in the right lower neck a nd the right chest wall. IMPRESSION: 1. Postoperative change and volume loss is consistent with right lower lobe resection. 2. A right apical chest tube is unchanged in position. No pneumothorax is seen. 3. There is trace pleural fluid at the right lung base and bibasilar atelectasis. ACT 112: Negative or not required by law. Electronically signed by: Theo Browning M.D. 01/11/2020 7:27 AM
[2020-01-11] MEDS: OXYCODONE HCL IR 5 MG TAB (IMMEDIATE RELEASE) PO PRN (08:26)
[2020-01-11] MEDS: MULTIVITAMIN TAB PO SCH (08:39)
[2020-01-11] MEDS: ESCITALOPRAM OXALATE 20 MG TAB PO SCH (08:40)
[2020-01-11] MEDS: ENOXAPARIN INJ 40 MG/0.4 ML SYR SQ SCH (08:40)
[2020-01-11] MEDS: DOCUSATE SODIUM 100 MG CAP PO SCH (08:40)
--- NOTE | 2020-01-11 10:13 | XRay Report ---
XR chest 1V portable HISTORY: chest tube removal COMPARISON: Chest 01/11/2020. FINDINGS: Interval removal of the right-sided chest tube. Small right pneumothorax measuring 11 mm. P ostoperative changes of the right hilum. Bibasilar densities persist. IMPRESSION: Interval removal of a right-sided chest tube with a small right apical pneumothorax ACT 112: Negative or not required by law. Electronically signed by: Juvencio Vee M.D. 01/11/2020 10:12 AM
--- NOTE | 2020-01-11 10:16 | Discharge Summary (DS) ---
DATE OF DISCHARGE: 01/11/2020 DISCHARGE DIAGNOSES: 1. Status post robot-assisted thoracoscopic right lower lobectomy. 2. Right lower lobe mass. 3. History of cigarette smoking. 4. Hypothyroidism. HOSPITAL COURSE: Rachel Kurtz is a very nice 54-year-old who really has smoked very little especially in the last few years, who has excellent underlying physical health in that she works out regularly and pushes herself aerobically. The patient had a CT scan of her chest and was found to have a mass in her right lower lobe which was suspicious looking. It was spiculated. It really did not light up much on PET. We were very concerned because it was not there in [address] scan[address] I had a long talk with the patient. This was rather deep within the parenchyma. It was not in an area we could do a segmentectomy. We would rosy this with indocyanine green dye and then find it and remove it, although this could be difficult given how deep it was. On 01/09/2020 the patient was brought to the operating room and underwent uncomplicated navigational bronchoscopy with marking of this area with ICG dye. We then turned her and we were able to see the dye, but again this was intraparenchymal. I wedged out 2 generous wedges and we did not include the mass. For this reason, I went ahead and completed the right lower lobectomy as we had already removed a good portion of the right lower lobe. The mass was then noted. It was very close to our staple line. It is unclear exactly what type of tumor this is on frozen section. It has a stromal appearance of more of a sarcoma or benign fibrous tissue. It will require immunohistochemical stains to tell for sure. We performed a lymph node biopsy also. We had negligible blood loss. The patient had a tiny air leak the day after surgery. So on postop day #2 this had resolved and I removed the tube. Her x-ray looked quite good afterwards. She actually did quite well. I did send her home with some oxycodone but quite frankly she is ambulating in the hallway on room air without difficulty. She is tolerating a regular diet. I will see her back in the office in 4 days to go over her final pathology. We will check an x-ray at that time.
== END 2020-01-11 11:52 | disposition home or self-care (01) | DRG 165 ==
LOC: ASU 05:18 → 3E 11:18